=== PATIENT | male | born 1980 | race Caucasian/White ===

== ENCOUNTER 2022-10-25 11:44 | Emergency (ER) | payer OTHER | END 2022-10-25 14:50 | disposition home or self-care (01) | LOC: ERS 11:44 | DX: K94.23 Gastrostomy malfunction (principal); E78.00 Pure hypercholesterolemia, unspecified; F17.210 Nicotine dependence, cigarettes, uncomplicated | CPT/HCPCS: 99282 ==

== ENCOUNTER 2022-11-20 09:01 | Day surgery (SDC) | payer OTHER ==
[2022-11-17 10:34] VITALS: BMI 41.8
[2022-11-20] MEDS ORDERED: Lidocaine 2% PF 5 ML VIAL ONE (10:08)
[2022-11-20] MEDS ORDERED: fentaNYL PF 100 MCG/2 ML SYRINGE ONE (11:23)
[2022-11-20] MEDS ORDERED: Lidocaine 1% PF 5 ML VIAL ONE (11:45)
[2022-11-20] MEDS ORDERED: Rocuronium Bromide 10 MG/ML (10ML VIAL) ONE (11:45)
[2022-11-20] MEDS ORDERED: Dexamethasone 20 MG/5 ML VIAL ONE (11:45)
[2022-11-20] MEDS ORDERED: PROPOFOL 200 MG/20 ML VIAL ONE (11:45)
[2022-11-20] MEDS ORDERED: SUGAMMADEX SODIUM 200 MG/2 ML VIAL ONE (12:04)
[2022-11-20] MEDS ORDERED: Fentanyl 100 MCG/2 ML VIAL ONE (12:53)
== END 2022-11-20 14:03 | disposition home or self-care (01) ==
LOC: SDC 09:01
PROVIDERS: ATTEND Internal Medicine
PROC: 0BJ08ZZ Inspection of Tracheobronchial Tree, Via Natural or Artificial Opening Endoscopic (ICD-10-PCS; principal; 2022-11-20)
PROC: 07B74ZX Excision of Thorax Lymphatic, Percutaneous Endoscopic Approach, Diagnostic (ICD-10-PCS; principal; 2022-11-20)
DX: C77.1 Secondary and unspecified malignant neoplasm of intrathoracic lymph nodes (principal); C15.9 Malignant neoplasm of esophagus, unspecified; I10 Essential (primary) hypertension; F17.210 Nicotine dependence, cigarettes, uncomplicated; Z79.899 Other long term (current) drug therapy; Z88.8 Allergy status to other drugs, medicaments and biological substances; Z91.040 Latex allergy status
CPT/HCPCS: 88172; 88173; 88305; 88333; 88341; 88342; J1100; J1642; J2001; J2704; J3010